=== PATIENT | male | born 1995 | race Caucasian/White ===

== ENCOUNTER 2018-05-28 17:07 | Emergency (ER) | payer MEDICAID ==
[~2018-05-28] VITALS: Ht 188 cm; Wt 184.1 kg
[~2018-05-28 17:07] MED LIST: NO HOME MEDS
[2018-05-28 17:17] VITALS: BP 137/88
[2018-05-28] MEDS ORDERED: acetaminophen 325mg tablet PO ONE (17:40)
[2018-05-28] MEDS ORDERED: ibuprofen tablet 400 MG TABLET PO ONE (17:40)
[2018-05-28 18:48] LABS: CLARITY,URINE CLEAR (Clear); COLOR,URINE YELLOW (Yellow); GLUCOSE, URINE NEGATIVE (Neg); KETONES,URINE NEGATIVE (Neg); LEUKOCYTE ESTERASE ,URINE NEGATIVE (Neg); NITRITES, URINE NEGATIVE (Neg); OCCULT BLOOD,URINE NEGATIVE (Neg); PROTEIN,URINE NEGATIVE (Neg); UROBILINOGEN,URINE 0.2 E.U/dL (0.2-1.0)
[2018-05-28 18:50] LABS: UA COLLECTION TYPE CLN CATCH MIDSTREAM
[2018-05-31] MEDS ORDERED: NAPR-56 PO (00:39)
[2018-05-31] MEDS ORDERED: CYCL-1 PO (00:39)
== END 2018-05-28 19:12 | disposition home or self-care (01) ==
LOC: ER 17:07
DX: R10.30 Lower abdominal pain, unspecified (principal)
CPT/HCPCS: 81003; 99283

== ENCOUNTER 2021-06-21 22:16 | Emergency (ER) | payer MEDICAID ==
[~2021-06-21] VITALS: Ht 188 cm; Wt 181.8 kg
[~2021-06-21 22:16] MED LIST changes: +CYCL-1 PO
[2021-06-21 22:34] VITALS: BP 144/107
--- NOTE | 2021-06-21 22:42 | NUR ---
Pt. has decided to leave imediately after being placed in ED lobby while awaiting room. Pt. able to stand and ambulate out of ED lobby without difficulty or assistance, steady gait.
== END 2021-06-21 22:42 | disposition left against medical advice (07) ==
LOC: ER 22:17
DX: M54.59 Other low back pain (principal); Z53.21 Procedure and treatment not carried out due to patient leaving prior to being seen by health care provider

== ENCOUNTER 2022-04-22 09:59 | Emergency (ER) | payer MEDICAID ==
[~2022-04-22] VITALS: Ht 188 cm; Wt 170.4 kg
[2022-04-22 10:26] VITALS: BP 120/79
== END 2022-04-22 12:01 | disposition home or self-care (01) ==
LOC: ER 10:00
DX: R19.05 Periumbilic swelling, mass or lump (principal); Z00.8 Encounter for other general examination
CPT/HCPCS: 99281